=== PATIENT | male | born 1945 | race Caucasian/White ===

== ENCOUNTER 2024-02-28 16:19 | Emergency (ER) | payer MEDICARE, OTHER, SELFPAY ==
[2024-02-28 16:22] VITALS: BP 173/93
--- NOTE | 2024-02-28 18:50 | ED.GENMED ---
History of Present Illness
<CYNDIE Rosas - Last Filed: 02/28/24 20:49>
General
Chief Complaint: Musculo-Skeletal Complaint
Source: patient
Exam Limitations: none
Time Seen by Provider: 02/28/24 18:01
Nursing documentation reviewed up to this point in time: agreed with
Travel History
Have you had any contact with someone who has COVID-19?: No
Do you have any symptoms of coronavirus? Fever > 100 degrees, chills, cough, shortness of breath, sore throat, loss of taste or smell, muscle aches, or headache?: No
History of Present Illness
History of Present Illness:
78 yr old male presents to the ER complaining of pain and swelling to his right ankle. 2 weeks ago he was walking up a hill and felt a pop in the back of his ankle and since has had pain and swelling to the area he is able to walk and move his
ankle but does complain of pain and swelling.
Review of Systems
<CYNDIE Rosas - Last Filed: 02/28/24 20:49>
Review of Systems
Allergies reviewed?: Yes
Other source history: family
All Other Systems: ROS reviewed and negative except as documented in HPI and ROS
Constitutional: Reports no symptoms; Denies fever, fatigue or chills
Respiratory: Reports no symptoms
Cardiac: Reports no symptoms
Musculoskeletal: Reports other (right ankle pain/swelling )
Skin: Reports no symptoms
Neurological: Reports no symptoms
Psychiatric: Reports no symptoms
Phy Exam
<CYNDIE Rosas - Last Filed: 02/28/24 20:49>
General Physical Exam
General Presentation: no apparent distress
General age: appears stated age
General Skin: warm and dry
General Habitus: elderly
General Mental: alert
General Hydration: appears well hydrated
Neurological Exam
Neurological Exam: alert and oriented x3
Musculoskeletal Exam
Musculoskeletal Exam: other (rle strong pulses rle with swelling to foot /ankle/lower leg + small deficit palpated to posterior lower aspect of achilles tendon however tendon intact on exam nml dorsiflexion/plantar flexion )
Skin Exam
Skin Exam: normal color and warm/dry
Psychiatric Exam
Psychiatric Exam: normal mood/affect
Course
<CYNDIE Rosas - Last Filed: 02/28/24 20:49>
Orders/Labs/Results
Orders:
Orders
02/28/24 16:27
CR Ankle - Right Min 3 Views * Urgent
Comment:
Reason For Exam: pain/swelling
02/28/24 18:49
Venous Doppler Lwr Ext Rt [US Periph Venous LOWER Ext RT] Urgent
Comment:
Reason For Exam: pain /swelling
02/28/24 20:39
boot [Ortho Boot Right- Treatment] ONCE
Short or tall?: Tall
Vital Signs
Initial and Last Documented VS:
Initial Vital Signs
Temp Pulse Resp BP Pulse Ox
98.1 F 70 19 173/93 98
02/28/24 16:22 02/28/24 16:22 02/28/24 16:22 02/28/24 16:22 02/28/24 16:22
Last Documented Vital Signs
Temp Pulse Resp BP Pulse Ox
98.1 F 70 19 173/89 98
02/28/24 16:22 02/28/24 20:10 02/28/24 16:22 02/28/24 20:10 02/28/24 16:22
[employer] Super[employer] consulted with Physician
[employer] Supervisor consulted with physician?: Yes
Name of Physician Consulted: Tom
<Harris Santos DO - Last Filed: 02/28/24 19:03>
Orders/Labs/Results
Orders:
Orders
02/28/24 16:27
CR Ankle - Right Min 3 Views * Urgent
Comment:
Reason For Exam: pain/swelling
02/28/24 18:49
Venous Doppler Lwr Ext Rt [US Periph Venous LOWER Ext RT] Urgent
Comment:
Reason For Exam: pain /swelling
02/28/24 20:39
boot [Ortho Boot Right- Treatment] ONCE
Short or tall?: Tall
Vital Signs
Initial and Last Documented VS:
Initial Vital Signs
Temp Pulse Resp BP Pulse Ox
98.1 F 70 19 173/93 98
02/28/24 16:22 02/28/24 16:22 02/28/24 16:22 02/28/24 16:22 02/28/24 16:22
Last Documented Vital Signs
Temp Pulse Resp BP Pulse Ox
98.1 F 70 19 173/89 98
02/28/24 16:22 02/28/24 20:10 02/28/24 16:22 02/28/24 20:10 02/28/24 16:22
<CYNDIE Rosas - Last Filed: 02/28/24 20:49>
MDM/Problems Addressed
Differential Diagnosis Includes:
Not limited to ankle sprain strain, Achilles tendon injury
MDM/Problems Addressed:
Symptoms are consistent with possible partial Achilles tendon injury/tear along with small avulsion fracture. Will DC with a boot with follow-up with orthopedics. reports will follow-up with Dr. Schultz's group as he operated on his hip in
the past. Discussed elevation is much as possible
<CYNDIE Rosas - Last Filed: 02/28/24 20:49>
*Radiology
Radiology exam reviewed: radiology read reviewed
*Pulse Oximetry
Patient hypoxic: no
*Critical Care Note
Total Time (30-74mins, 75-104mins- exclusive of procedures): Not Applicable
ED Attending Note
<CYNDIE Rosas - Last Filed: 02/28/24 20:49>
-
Portions of this chart may have been created with voice recognition software.� Occasional wrong word or��sound alike� substitutions may have occurred due to the inherent limitations of voice recognition software.
<Harris Santos DO - Last Filed: 02/28/24 19:03>
ED Attending Note
Patient seen and examined by attending physician: Yes
I performed the substantive portion of visit, reviewed & personally made and approve the management plan that is documented in note by myself or JHON.: Yes
ED Attending Note:
I have seen and evaluated the patient with a [id number] encounter. I have spoken to the advance practicer provider and involved in the medical history, the physical exam, medical decision making.
Evaluation and management service: agree unless noted differently below.
Results interpretation: agree unless noted differently below.
Focused HPI: 78-year-old male presenting with right ankle and foot pain. He felt a pop behind his right ankle as he was walking
Physical exam: Swelling and tenderness noted through right Achilles tendon. Patient is able to plantar and dorsiflex. The distal extremity is neurovascular intact
Medical Decision Making: Will obtain x-ray with concern for avulsion fracture. Will obtain ultrasound with concern for Achilles rupture. Will ultimately place in boot and have him follow-up with orthopedics
Discharge Plan
Departure
Patient Disposition: Home (Routine Discharge)
Date of Disposition: 02/28/24
Time of Disposition: 20:47
Patient with high blood pressure during this ER visit?: Yes
Discharge Problem:
Ankle fracture, Achilles tendon injury
Instructions: Achilles tendon injury, Ankle Fracture (DC)
Prescriptions:
No Action
metformin [Fortamet] 1,000 MG tablet extended release 24hr
1,000 mg PO BID
glipizide 10 MG tablet
10 mg PO BID
cyanocobalamin (vitamin B-12) 1,000 MCG tablet
1,000 mcg PO DAILY
amlodipine 5 MG tablet
5 mg PO DAILY
losartan [Cozaar] 100 MG tablet
100 mg PO DAILY
insulin aspart U-100 [Novolog FlexPen U-100 Insulin] 300 UNITS/3 ML insulin pen
10 units INJ Q12H
rosuvastatin [Crestor] 40 MG tablet
40 mg PO DAILY
insulin detemir U-100 [Levemir FlexTouch U100 Insulin] 300 UNIT/3 ML insulin pen
40 unit SC BID@0800,1700
mupirocin 1 APPLIC ointment
1 applic topical BID Qty: 1 0RF
Patient Comments:
started treatment on wednesday02/16/22 and was taking BID. Last took at home 02/17/22 in evening
sennosides [senna] 1 TABLET tablet
2 tab PO BID 0RF
acetaminophen 325 MG tablet
650 mg PO Q4HWA 0RF
aspirin 325 MG tablet
325 mg PO DAILY 0RF
magnesium hydroxide 30 ML suspension
30 ml PO DAILYPRN PRN (Reason: constipation) 0RF
docusate sodium 100 MG capsule
100 mg PO BID 0RF
oxycodone 5 MG tablet
5 mg PO Q6HPRN PRN (Reason: moderate-severe pain) Qty: 30 0RF
Rx Instructions:
1 tab moderate pain or 2 if pain severe
Dx total joint replacement
ongoing therapy
cefadroxil 500 MG capsule
500 mg PO BID Qty: 14 0RF
meloxicam [Mobic] 15 MG tablet
15 mg PO DAILY Qty: 14 0RF
Rx Instructions:
take with food
space out 2 hours from aspirin
famotidine 20 MG tablet
20 mg PO HS Qty: 30 0RF
Saccharomyces boulardii [Florastor] 250 MG capsule
250 mg PO BID Qty: 14 0RF
Rx Instructions:
OR ANY OTC PROBIOTIC
Referrals:
Lucho Steward MD [Family Provider] -
Dimitrios Schultz MD [Active] -
Activity Restrictions/Additional Instructions:
As discussed you likely have an Achilles tendon injury(possible partial tear) and a small chip fracture in your ankle. Keep elevate is much as possible Wear boot until seen and eval by orthopedics. Call tomorrow morning for an appointment as soon
as possible
return of any worsening of symptoms.
Interventions
Interventions:
*Risk Screen - Suicide Last Done: 02/28/24 16:22
*General Assessment Last Done: 02/28/24 16:22
*Neglect/Abuse Screening Last Done: 02/28/24 16:22
ED-Musculoskeletal Assessment Last Done: 02/28/24 16:53
Discharge Date and Time
Print Language: BENGALI
[2024-02-28 20:10] VITALS: BP 173/89
[2024-02-28 21:15] VITALS: BP 163/73
[2024-02-28 21:16] VITALS: BP 163/73
== END 2024-02-28 21:17 | disposition home or self-care (01) ==
LOC: EMR 16:19
PROVIDERS: EMERGENCY PHYSICIAN Student in an Organized Health Care Education/Training Program; FAMILY PHYSICIAN Family Medicine
DX: S82.61XA Displaced fracture of lateral malleolus of right fibula, initial encounter for closed fracture (principal); S86.001A Unspecified injury of right Achilles tendon, initial encounter; X50.1XXA Overexertion from prolonged static or awkward postures, initial encounter
CPT/HCPCS: 99284; 73610; 93971

== ENCOUNTER → 2024-05-02 11:57 | Outpatient (REF) | payer MEDICARE, OTHER, SELFPAY | LOC: PAVMRI 11:57 | PROVIDERS: ATTENDING PHYSICIAN Student in an Organized Health Care Education/Training Program; FAMILY PHYSICIAN Family Medicine | DX: M25.571 Pain in right ankle and joints of right foot (principal) | CPT/HCPCS: 73721 ==